=== PATIENT | female | born 1975 | race Caucasian/White ===

== ENCOUNTER 2022-08-28 14:07 | Emergency (ER) | payer MEDICAID, OTHER ==
[~2022-08-28] VITALS: Ht 162.6 cm; Wt 86.2 kg
[~2022-08-28 14:07] MED LIST: NO MEDS
[2022-08-28 14:23] VITALS: BP 188/110
[2022-08-28] MEDS ORDERED: ACET-8905 PO (14:51)
[2022-08-28] MEDS ORDERED: IBUP-2213 PO (14:51)
[2022-08-28] MEDS ORDERED: PRED20TA5 PO (14:51)
--- NOTE | 2022-08-28 15:05 | NUR ---
Patient discharged with v/s stable. Written and verbal after care instructions given and explained. Patient alert, oriented and verbalized understanding of instructions. Ambulatory with steady gait. All questions addressed prior to discharge. ID band removed. Patient advised to follow up with PMD. Rx of PREDNIOSNE, MOTRIN, NORCO given. Patient educated on indication of medication including possible reaction and side effects. Opportunity to ask questions provided and answered.
[2022-08-28 16:14] VITALS: BP_DIAS 9
== END 2022-08-28 16:14 | disposition home or self-care (01) ==
LOC: MED 14:07
DX: B02.9 Zoster without complications (principal); I10 Essential (primary) hypertension; E11.9 Type 2 diabetes mellitus without complications; Z79.4 Long term (current) use of insulin; Z79.899 Other long term (current) drug therapy; Z98.890 Other specified postprocedural states
CPT/HCPCS: 93005; 99283